=== PATIENT | female | born 1950 | race Caucasian/White ===

== ENCOUNTER → 2021-06-01 | Outpatient (CLI) | payer BC | LOC: KOH-I 13:58 | DX: M25.561 Pain in right knee (principal); M25.562 Pain in left knee; M25.511 Pain in right shoulder; M25.512 Pain in left shoulder; M17.0 Bilateral primary osteoarthritis of knee; M23.41 Loose body in knee, right knee; M19.011 Primary osteoarthritis, right shoulder; M19.012 Primary osteoarthritis, left shoulder | CPT/HCPCS: 73030; 73562 ==

== ENCOUNTER 2021-08-16 12:03 | Emergency (ER) | payer BC ==
[2021-08-16 12:51] LABS: RED BLOOD COUNT 4.3 M/UL (4.00-5.10); WHITE BLOOD COUNT 7.4 K/UL (4.5-11.0)
[2021-08-16 14:38] LABS: BUN/CREATININE RATIO 27 (0-10)
[2021-08-16] MEDS ORDERED: ZITHROMAX250 MG PO (17:03)
== END 2021-08-16 17:14 | disposition home or self-care (01) ==
LOC: ER1 12:03
PROVIDERS: Physician Assistant
DX: R06.09 Other forms of dyspnea (principal); J44.0 Chronic obstructive pulmonary disease with (acute) lower respiratory infection; J18.9 Pneumonia, unspecified organism; I10 Essential (primary) hypertension; E78.5 Hyperlipidemia, unspecified; Z86.16 Personal history of COVID-19
CPT/HCPCS: 71045; 80053; 82550; 82553; 83615; 83880; 84484; 85025; 86140; 99285; Q9967

== ENCOUNTER → 2022-02-01 | Outpatient (CLI) | payer BC ==
[~2022-02-01] MED LIST: ZITHROMAX250 MG PO
== END ==
LOC: EMI 15:55
DX: S43.004A Unspecified dislocation of right shoulder joint, initial encounter (principal); M75.101 Unspecified rotator cuff tear or rupture of right shoulder, not specified as traumatic
CPT/HCPCS: 73221

== ENCOUNTER → 2022-02-13 | Outpatient (CLI) | payer BC ==
[~2022-02-13] VITALS: Ht 167.6 cm; Wt 117.9 kg
[~2022-02-13] MED LIST changes: +ALIVE PREMIUM PO; +BLACK ELDERBERRY PO; +CALCIUM 600 MG1 EAC4 PO; +CALCIUM500 M1 PO; +CBD PO; +DULOXETINE HCL60 MG PO; +HYDROCHLOROTHIA25 MG PO; +NABUMETONE750 MG PO; +PROAIR HFA8.5 GM INH; +SYMBICORT 16010.2 GM INH; +ZETIA10 MG PO
[2022-02-13 11:23] LABS: HEMOGLOBIN 14.6 gm/dl (12.3-15.3); RED BLOOD COUNT 4.54 M/UL (4.00-5.10); WHITE BLOOD COUNT 6.7 K/UL (4.5-11.0)
[2022-02-13 11:36] LABS: BUN/CREATININE RATIO 24 (0-10)
== END ==
LOC: OPSV2 10:00
PROVIDERS: Anesthesiology
DX: Z01.818 Encounter for other preprocedural examination (principal); M75.100 Unspecified rotator cuff tear or rupture of unspecified shoulder, not specified as traumatic
CPT/HCPCS: 80048; 85025; 93005

== ENCOUNTER → 2022-02-17 | Day surgery (SDC) | payer BC | END | disposition home or self-care (01) | LOC: OR 05:21 | DX: M75.121 Complete rotator cuff tear or rupture of right shoulder, not specified as traumatic (principal); S43.431A Superior glenoid labrum lesion of right shoulder, initial encounter; M65.811 Other synovitis and tenosynovitis, right shoulder; M94.211 Chondromalacia, right shoulder; M75.51 Bursitis of right shoulder; G89.18 Other acute postprocedural pain; I10 Essential (primary) hypertension; E78.5 Hyperlipidemia, unspecified; J44.9 Chronic obstructive pulmonary disease, unspecified; K21.9 Gastro-esophageal reflux disease without esophagitis; E66.01 Morbid (severe) obesity due to excess calories; F32.A Depression, unspecified; Z79.899 Other long term (current) drug therapy; Z88.8 Allergy status to other drugs, medicaments and biological substances | CPT/HCPCS: 73020; C1713; J0171; J0690; J1100; J2001; J2405; J2704; J2795; J3010 ==